=== PATIENT | male | born 1995 | race Two or more races ===

== ENCOUNTER 2019-01-30 16:43 | Emergency (ER) | payer SELFPAY ==
[~2019-01-30] VITALS: Ht 180.3 cm; Wt 70.0 kg
[2019-01-30 17:00] VITALS: BP 118/54
[2019-01-30] MEDS ORDERED: LIDOCAINE-MPF 1%, 5ML INFIL ONE (17:30)
[2019-01-30] MEDS ORDERED: LIDOCAINE-MPF 1%, 5ML ONE (17:54)
[2019-01-30] MEDS ORDERED: NEOSPORIN OINT. PKT 1 PACKET ONE ×2 (18:29→18:30)
--- NOTE | 2019-01-30 18:35 | NUR ---
BACITRACIN AND BANDAIDE APPLIED
--- NOTE | 2019-01-30 19:13 | NUR ---
Patient/Caregiver given discharge instructions and they have confirmed that they understand the instructions. Patient ambulatory with steady gait.
== END 2019-01-30 19:14 | disposition home or self-care (01) ==
LOC: ED 19:02
DX: S01.81XA Laceration without foreign body of other part of head, initial encounter (principal); F10.120 Alcohol abuse with intoxication, uncomplicated; F17.210 Nicotine dependence, cigarettes, uncomplicated; W01.198A Fall on same level from slipping, tripping and stumbling with subsequent striking against other object, initial encounter; Y93.89 Activity, other specified; Y92.098 Other place in other non-institutional residence as the place of occurrence of the external cause; Y99.8 Other external cause status
CPT/HCPCS: 12051; 70450